=== PATIENT | male | born 1965 | race Caucasian/White ===

== ENCOUNTER 2019-03-26 17:32 | Inpatient (IN) | payer BC ==
[~2019-03-26] VITALS: Ht 167.6 cm; Wt 88.4 kg
[~2019-03-26 17:32] MED LIST: ASPI-903 PO; ATOR40TA68 PO; CARV6.2579 PO; CEPH-443 PO; CIPR500T4 PO; DOCU-144 PO; FURO20TA3 PO; FURO40TA4 PO; GABA300C16 PO; GLIP10TA14 PO; HYDR-4011 PO; INSU300I SQ; LACT1CAP57 PO; LISI-313 PO; METF100010 PO; METR-121 PO; NITR0.4T32 SL; SPIR25TA PO; SULF1TAB31 PO
[2019-03-26] MEDS ORDERED: morphine 4 MG/ML VIAL IV STA (18:55)
[2019-03-26] MEDS ORDERED: ONDANSETRON 4 MG INJ IV STA (18:55)
[2019-03-26] MEDS ORDERED: NITROGLYCERIN 2% 1 GM OINT PKT TD STA (18:55)
[2019-03-26] MEDS ORDERED: FUROSEMIDE 40 MG INJ IV STA (18:55)
[2019-03-26] MEDS ORDERED: ASPIRIN 81 MG TAB PO STA (18:55)
[2019-03-26] MEDS ORDERED: NITROGLYCERIN (SL) 0.4 MG TAB SL PRN ×2 (19:00→21:30)
[2019-03-26] MEDS ORDERED: ACETAMINOPHEN 325 MG TAB PO PRN ×2 (19:30→21:30)
[2019-03-26] MEDS ORDERED: ONDANSETRON 4 MG INJ IV PRN ×2 (19:30→21:30)
[2019-03-26] MEDS ORDERED: NACL 0.9% 3 ML SYG IV SCH (21:30)
[2019-03-26] MEDS ORDERED: DOCUSATE SODIUM 100 MG CAP PO PRN (21:30)
[2019-03-26] MEDS ORDERED: BISACODYL (EC) 5 MG TAB PO PRN (21:30)
[2019-03-26] MEDS ORDERED: DEXTROSE 50% 50 ML SYRINGE IV PRN ×2 (22:00)
[2019-03-26] MEDS ORDERED: GLUCAGON 1 MG INJ IM PRN (22:00)
[2019-03-26] MEDS ORDERED: GLUCOSE GEL 15 GRAM TUBE BUCCAL PRN (22:00)
[2019-03-26] MEDS ORDERED: GLUCOSE GEL 15 GRAM TUBE PO PRN ×2 (22:00)
[2019-03-27] MEDS: ACCU-CHEK XX SCH (02:00)
[2019-03-27] MEDS ORDERED: ACCU-CHEK XX SCH (02:00)
[2019-03-27] MEDS ORDERED: POLYETHYLENE GLYCOL 17 GM PACKET PO ONE (02:30)
[2019-03-27] MEDS ORDERED: DOCUSATE SODIUM 100 MG CAP PO ONE (02:30)
[2019-03-27 02:50] VITALS: BP 120/77; PULSE 89; RESP 18
[2019-03-27] MEDS: morphine 2 MG INJ IV PRN ×3 (03:04→20:48)
[2019-03-27] MEDS: CEFTRIAXONE 1 GM/50 ML (PMX) 50 ML IVPB SCH (03:06)
[2019-03-27] MEDS ORDERED: SOD CHLORIDE 0.9% 100 ML ONE (03:16)
[2019-03-27] MEDS ORDERED: IOHEXOL 300MG/ML 30 ML BTL ONE (03:16)
[2019-03-27 03:30] VITALS: Ht 167.6 cm; Wt 88.4 kg
[2019-03-27 04:13] VITALS: BP 128/83; PULSE 86; RESP 18
[2019-03-27] MEDS: FUROSEMIDE 20 MG INJ IV SCH ×2 (05:55→17:24)
[2019-03-27] MEDS ORDERED: FUROSEMIDE 20 MG INJ IV SCH (06:00)
[2019-03-27] MEDS ORDERED: MAGNESIUM SULFATE 4 GM/100 ML 100 ML IVPB ONE (07:00)
[2019-03-27 07:53] VITALS: BP 123/79; PULSE 83; RESP 16
[2019-03-27] MEDS ORDERED: INSULIN ASPART [NOVOLOG] 3 ML PEN SC SCH (08:00)
[2019-03-27] MEDS: ASPIRIN 81 MG TAB PO SCH (08:12)
[2019-03-27] MEDS: ENOXAPARIN 40 MG/0.4 ML SYG SC SCH (08:25)
[2019-03-27] MEDS ORDERED: INSULIN GLARGINE [LANTus] (100 UNITS/ML) SYG SC SCH ×3 (09:00→14:30)
[2019-03-27] MEDS: INSULIN ASPART [NOVOLOG] 3 ML PEN SC SCH ×4 (09:22→20:45)
[2019-03-27 11:23] VITALS: BP 115/64; PULSE 90; RESP 16
[2019-03-27] MEDS: LISINOPRIL 5 MG TAB PO SCH (15:21)
[2019-03-27 15:48] VITALS: BP 108/71; PULSE 88; RESP 16
[2019-03-27] MEDS: POLYETHYLENE GLYCOL 17 GM PACKET PO SCH (17:24)
[2019-03-27 20:00] VITALS: BP 99/56; PULSE 89; RESP 19
[2019-03-27] MEDS: GABAPENTIN 300 MG CAP PO SCH (20:41)
[2019-03-27] MEDS: ATORVASTATIN 40 MG TAB PO SCH (20:41)
[2019-03-28] VITALS (7 sets, daily range): BP systolic 90–149; BP diastolic 57–80; PULSE 57–90; RESP 18–21
[2019-03-28] MEDS: ACCU-CHEK XX SCH ×4 (01:15→20:27)
[2019-03-28] MEDS: CEFTRIAXONE 1 GM/50 ML (PMX) 50 ML IVPB SCH (01:47)
[2019-03-28] MEDS: FUROSEMIDE 20 MG INJ IV SCH ×2 (05:24→17:11)
[2019-03-28] MEDS: INSULIN ASPART [NOVOLOG] 3 ML PEN SC SCH ×4 (08:00→20:26)
[2019-03-28] MEDS: ASPIRIN 81 MG TAB PO SCH (08:42)
[2019-03-28] MEDS: POLYETHYLENE GLYCOL 17 GM PACKET PO SCH (08:42)
[2019-03-28] MEDS: morphine 2 MG INJ IV PRN ×2 (08:42→20:17)
[2019-03-28] MEDS: LISINOPRIL 5 MG TAB PO SCH (08:42)
[2019-03-28] MEDS: ENOXAPARIN 40 MG/0.4 ML SYG SC SCH (08:49)
[2019-03-28] MEDS ORDERED: MAGNESIUM HYDROXIDE 30ML CUP PO ONE (09:41)
[2019-03-28] MEDS: INSULIN GLARGINE [LANTus] (100 UNITS/ML) SYG SC SCH (10:51)
[2019-03-28] MEDS: metFORMIN 500 MG TAB PO SCH (17:11)
[2019-03-28] MEDS: GABAPENTIN 300 MG CAP PO SCH (20:17)
[2019-03-28] MEDS: ATORVASTATIN 40 MG TAB PO SCH (20:17)
[2019-03-28] MEDS: DOCUSATE SODIUM 100 MG CAP PO SCH (20:18)
[2019-03-29 00:45] VITALS: BP 105/61; PULSE 79; RESP 20
[2019-03-29] MEDS: CEFTRIAXONE 1 GM/50 ML (PMX) 50 ML IVPB SCH (02:25)
[2019-03-29] MEDS: ACCU-CHEK XX SCH ×5 (02:25→20:59)
[2019-03-29 04:00] VITALS: BP 108/72; PULSE 76; RESP 18
[2019-03-29] MEDS: FUROSEMIDE 20 MG INJ IV SCH (06:15)
[2019-03-29 06:49] VITALS: BP 115/75; PULSE 77; RESP 19
[2019-03-29] MEDS: INSULIN ASPART [NOVOLOG] 3 ML PEN SC SCH ×4 (07:32→20:59)
[2019-03-29] MEDS: POLYETHYLENE GLYCOL 17 GM PACKET PO SCH (08:07)
[2019-03-29] MEDS: ASPIRIN 81 MG TAB PO SCH (08:07)
[2019-03-29] MEDS: DOCUSATE SODIUM 100 MG CAP PO SCH ×2 (08:07→20:53)
[2019-03-29] MEDS: metFORMIN 500 MG TAB PO SCH ×2 (08:08→17:40)
[2019-03-29] MEDS: LISINOPRIL 5 MG TAB PO SCH (08:09)
[2019-03-29] MEDS: ENOXAPARIN 40 MG/0.4 ML SYG SC SCH (08:14)
[2019-03-29] MEDS: INSULIN GLARGINE [LANTus] (100 UNITS/ML) SYG SC SCH (09:53)
[2019-03-29 11:00] VITALS: BP 121/57; PULSE 73; RESP 20
[2019-03-29] MEDS: SPIRONOLACTONE 25 MG TAB PO SCH (12:42)
[2019-03-29] MEDS: morphine 2 MG INJ IV PRN ×2 (12:43→22:08)
[2019-03-29 14:57] VITALS: BP 116/67; PULSE 80; RESP 18
[2019-03-29 20:20] VITALS: BP 145/87; PULSE 84; RESP 20
[2019-03-29] MEDS: GABAPENTIN 300 MG CAP PO SCH (20:53)
[2019-03-29] MEDS: ATORVASTATIN 40 MG TAB PO SCH (20:54)
[2019-03-30] VITALS (18 sets, daily range): BP systolic 101–131; BP diastolic 55–87; PULSE 66–88; RESP 11–27
[2019-03-30] MEDS: ACCU-CHEK XX SCH ×5 (01:43→21:12)
[2019-03-30] MEDS: CEFTRIAXONE 1 GM/50 ML (PMX) 50 ML IVPB SCH (01:43)
[2019-03-30] MEDS: INSULIN ASPART [NOVOLOG] 3 ML PEN SC SCH ×4 (08:00→21:24)
[2019-03-30] MEDS: metFORMIN 500 MG TAB PO SCH (08:00)
[2019-03-30] MEDS: POLYETHYLENE GLYCOL 17 GM PACKET PO SCH (08:41)
[2019-03-30] MEDS: SPIRONOLACTONE 25 MG TAB PO SCH (08:42)
[2019-03-30] MEDS: LISINOPRIL 5 MG TAB PO SCH (08:42)
[2019-03-30] MEDS: ASPIRIN 81 MG TAB PO SCH (08:42)
[2019-03-30] MEDS: DOCUSATE SODIUM 100 MG CAP PO SCH ×2 (08:42→21:08)
[2019-03-30] MEDS: ENOXAPARIN 40 MG/0.4 ML SYG SC SCH (08:43)
[2019-03-30] MEDS: INSULIN GLARGINE [LANTus] (100 UNITS/ML) SYG SC SCH (08:44)
[2019-03-30] MEDS: morphine 2 MG INJ IV PRN ×2 (08:53→18:37)
[2019-03-30] MEDS ORDERED: FUROSEMIDE 20 MG INJ IV SCH (09:00)
[2019-03-30] MEDS ORDERED: LIDOCAINE 1% (MDV) 20 ML INJ ONE (10:03)
[2019-03-30] MEDS ORDERED: FENTAnyl 50 MCG/ML VIAL ONE (10:03)
[2019-03-30] MEDS ORDERED: HEPARIN 1000 UNITS/ML 10 ML INJ ONE (10:03)
[2019-03-30] MEDS ORDERED: IODIXANOL LOCM 100 ML BTL ONE (10:03)
[2019-03-30] MEDS ORDERED: VERAPAMIL 5 MG INJ ONE (10:03)
[2019-03-30] MEDS ORDERED: MIDAZOLAM 1 MG/ML 2 ML INJ ONE (10:03)
[2019-03-30] MEDS ORDERED: NITROGLYCERIN (IC) 100 MCG/ML INJ ONE (11:04)
[2019-03-30] MEDS ORDERED: SOD CHLORIDE 0.9% 500 ML ONE (11:04)
[2019-03-30] MEDS: GABAPENTIN 300 MG CAP PO SCH (21:08)
[2019-03-30] MEDS: ATORVASTATIN 40 MG TAB PO SCH (21:08)
[2019-03-30] MEDS: FUROSEMIDE 20 MG INJ IV SCH (21:09)
[2019-03-31] VITALS (7 sets, daily range): BP systolic 101–126; BP diastolic 57–79; PULSE 71–82; RESP 18–20
[2019-03-31] MEDS: morphine 2 MG INJ IV PRN ×4 (01:27→21:27)
[2019-03-31] MEDS: CEFTRIAXONE 1 GM/50 ML (PMX) 50 ML IVPB SCH (02:21)
[2019-03-31] MEDS: ACCU-CHEK XX SCH ×5 (02:26→21:18)
[2019-03-31] MEDS ORDERED: HEPARIN (10000 UNITS/ML) 10,000 UNIT, MILRINONE LACTATE 10 MG in SOD CHLORIDE 0.9% 1,00... SC ONE (07:00)
[2019-03-31] MEDS ORDERED: MILRINONE LACTATE 2 MG in SOD CHLORIDE 0.9% 50 ML IV ONE (07:00)
[2019-03-31] MEDS ORDERED: INSULIN HUMAN REGULAR 100 UNIT in SOD CHLORIDE 0.9% 99 ML IVPB ONE (07:00)
[2019-03-31] MEDS ORDERED: NORepinephrine 8MG/250 ML (PMX 250 ML IV ONE (07:00)
[2019-03-31] MEDS ORDERED: PHENYLephrine 20MG IN 250 ML 250 ML IV ONE (07:00)
[2019-03-31] MEDS ORDERED: EPINEPHrine 4 MG in DEXTROSE 5% 246 ML IV ONE (07:00)
[2019-03-31] MEDS ORDERED: ASPIRIN 600 MG SUPP PR ONE (07:00)
[2019-03-31] MEDS: INSULIN GLARGINE [LANTus] (100 UNITS/ML) SYG SC SCH ×2 (08:00→15:40)
[2019-03-31] MEDS: INSULIN ASPART [NOVOLOG] 3 ML PEN SC SCH ×6 (08:19→21:00)
[2019-03-31] MEDS: ASPIRIN 81 MG TAB PO SCH (09:12)
[2019-03-31] MEDS: SPIRONOLACTONE 25 MG TAB PO SCH (09:12)
[2019-03-31] MEDS: POLYETHYLENE GLYCOL 17 GM PACKET PO SCH (09:13)
[2019-03-31] MEDS: DOCUSATE SODIUM 100 MG CAP PO SCH ×2 (09:13→21:26)
[2019-03-31] MEDS: FUROSEMIDE 20 MG INJ IV SCH (09:14)
[2019-03-31] MEDS: ENOXAPARIN 40 MG/0.4 ML SYG SC SCH (09:19)
[2019-03-31] MEDS: LISINOPRIL 5 MG TAB PO SCH (10:58)
[2019-03-31] MEDS: metroNIDAZOLE 500 MG TAB PO SCH ×2 (13:23→21:26)
[2019-03-31] MEDS: ATORVASTATIN 40 MG TAB PO SCH (21:26)
[2019-03-31] MEDS: GABAPENTIN 300 MG CAP PO SCH (21:26)
[2019-04-01] MEDS: ACCU-CHEK XX SCH ×3 (02:00→11:30)
[2019-04-01] MEDS: CEFTRIAXONE 1 GM/50 ML (PMX) 50 ML IVPB SCH (02:24)
[2019-04-01] MEDS: morphine 2 MG INJ IV PRN ×2 (02:32→08:35)
[2019-04-01 04:00] VITALS: BP 103/63; PULSE 72; RESP 18
[2019-04-01] MEDS: metroNIDAZOLE 500 MG TAB PO SCH ×2 (05:45→13:37)
[2019-04-01 07:58] VITALS: BP 113/57; PULSE 75; RESP 20
[2019-04-01] MEDS ORDERED: INSULIN GLARGINE [LANTus] (100 UNITS/ML) SYG SC SCH (08:00)
[2019-04-01] MEDS: INSULIN ASPART [NOVOLOG] 3 ML PEN SC SCH ×4 (08:00→11:44)
[2019-04-01] MEDS: INSULIN GLARGINE [LANTus] (100 UNITS/ML) SYG SC SCH (08:14)
[2019-04-01] MEDS: LISINOPRIL 5 MG TAB PO SCH (08:23)
[2019-04-01] MEDS: ASPIRIN 81 MG TAB PO SCH (08:23)
[2019-04-01] MEDS: SPIRONOLACTONE 25 MG TAB PO SCH (08:24)
[2019-04-01] MEDS: POLYETHYLENE GLYCOL 17 GM PACKET PO SCH (08:24)
[2019-04-01] MEDS: DOCUSATE SODIUM 100 MG CAP PO SCH (08:24)
[2019-04-01] MEDS: ENOXAPARIN 40 MG/0.4 ML SYG SC SCH (08:26)
[2019-04-01] MEDS ORDERED: FUROSEMIDE 40 MG TAB PO SCH (09:00)
[2019-04-01 11:37] VITALS: BP 116/55; PULSE 72; RESP 20
[2019-04-01 15:58] VITALS: BP 128/72; PULSE 77; RESP 20
== END 2019-04-01 16:25 | disposition home or self-care (01) | DRG 286 ==
LOC: E/R 17:32 → 6WM 19:05 → OBSVTOIN 03-27 15:55
PROVIDERS: ADMIT Family Medicine; ATTEND Family Medicine
PROC: B211YZZ Fluoroscopy of Multiple Coronary Arteries using Other Contrast (ICD-10-PCS; 2019-03-30)
PROC: 4A023N7 Measurement of Cardiac Sampling and Pressure, Left Heart, Percutaneous Approach (ICD-10-PCS; principal; 2019-03-30 09:00)
DX: I11.0 Hypertensive heart disease with heart failure (principal); I50.21 Acute systolic (congestive) heart failure; N39.0 Urinary tract infection, site not specified; I42.0 Dilated cardiomyopathy; E83.42 Hypomagnesemia; J98.4 Other disorders of lung; I25.10 Atherosclerotic heart disease of native coronary artery without angina pectoris; E11.9 Type 2 diabetes mellitus without complications; E78.5 Hyperlipidemia, unspecified; I25.5 Ischemic cardiomyopathy; F17.210 Nicotine dependence, cigarettes, uncomplicated; R10.31 Right lower quadrant pain; K59.09 Other constipation; K52.9 Noninfective gastroenteritis and colitis, unspecified; E66.9 Obesity, unspecified; Z68.30 Body mass index [BMI] 30.0-30.9, adult; Z79.4 Long term (current) use of insulin; Z79.82 Long term (current) use of aspirin
CPT/HCPCS: 36415; 71045; 71260; 74176; 74177; 80048; 80053; 80061; 80307; 81001; 82550; 82553; 82962; 83036; 83690; 83735; 83880; 84100; 84443; 84484; 85025; 85651; 86803; 87086; 87340; 93005; 93306; 93458; G0378; J0171; J0696; J1644; J1650; J1815; J1940; J2250; J2260; J2270; J2370; J3010; J7030; J7040; J7070; Q9967

== ENCOUNTER 2019-05-04 19:03 | Emergency (ER) | payer BC ==
[~2019-05-04] VITALS: Ht 167.6 cm; Wt 80.2 kg
[~2019-05-04 19:03] MED LIST changes: -FURO20TA3 PO
[2019-05-04 19:28] VITALS: Ht 167.6 cm; Wt 80.2 kg
[2019-05-04] MEDS ORDERED: SOD CHLORIDE 0.9% 1,000 ML IV STA (20:22)
[2019-05-04] MEDS ORDERED: ONDANSETRON 4 MG INJ IV STA (20:22)
[2019-05-04] MEDS ORDERED: morphine 4 MG/ML VIAL IV STA (20:22)
[2019-05-04] MEDS ORDERED: CLINDAMYCIN 900 MG (PMX) 50 ML IVPB SCH (20:30)
[2019-05-04] MEDS ORDERED: KETOROLAC 30 MG INJ IV STA (21:36)
[2019-05-04] MEDS ORDERED: SOD CHLORIDE 0.9% 1,000 ML IV ONE (21:45)
[2019-05-04] MEDS ORDERED: TRIMETHOPRIM/SULFAMETHOX (DS) TAB PO ONE (22:00)
[2019-05-05 00:08] VITALS: BP 105/64; PULSE 99; RESP 18
== END 2019-05-05 00:09 | disposition home or self-care (01) ==
LOC: FTE 19:03
DX: K05.219 Aggressive periodontitis, localized, unspecified severity (principal); E11.9 Type 2 diabetes mellitus without complications; F17.210 Nicotine dependence, cigarettes, uncomplicated; Z79.4 Long term (current) use of insulin; Z79.82 Long term (current) use of aspirin
CPT/HCPCS: 41800; 80048; 85025; J1885; J2270; J2405; J7030; 36415; 96374; 96375